=== PATIENT | female | born 1995 ===

== ENCOUNTER 2017-11-22 19:19 | Observation (INO) | payer OTHER ==
[2017-11-22 20:09] VITALS: BMI 22.4
[2017-11-22] MEDS ORDERED: Lactated Ringer's 1,000 ML IV SCH (20:15)
[2017-11-22 20:52] LABS: SQUAMOUS EPITHIAL 8 /hpf (0-5); URINE BILIRUBIN NEGATIVE (NEGATIVE); URINE BLOOD NEGATIVE (NEGATIVE); URINE CLARITY SLIGHTY-CLOUDY (Clear); URINE COLOR YELLOW (YELLOW); URINE GLUCOSE (UA) NEG (Normal); URINE LEUKOCYTE ESTERASE NEG Leu/uL (Negative); URINE NITRATE NEGATIVE (NEGATIVE); URINE PROTEIN NEGATIVE (NEGATIVE); URINE UROBILINOGEN 0.2-1.0 mg/dL (0.2-1.0)
[2017-11-22] MEDS: Lactated Ringer's 1,000 ML IV SCH (21:30)
--- NOTE | 2017-11-22 21:43 | US ---
EXAM: US Uterus, Limited CLINICAL HISTORY: 22 years old, female; Pain; complicated by abdominal or pelvic pain; Other: Contractions; Gestational age or lmp: 26 wks; ; Additional info: Ctxns at 26 weeks TECHNIQUE: Real-time ultrasound of the maternal uterus (limited) with image documentation. COMPARISON: No relevant prior studies available. FINDINGS: Cervix: Closed cervix. Cervical length = 5.1 cm. IMPRESSION: 1.No acute findings.
--- NOTE | 2017-11-22 23:30 | OBHP ---
Datetime: 11/22/2017 20:52 IP Adm Impression: , intrauterine IP Chief Complaint Other: Back pain IP Admit Plan: Observation/Evaluation Admit Comment, IP Provider: 22 yo at 26+2 wks w/ EDC 02/26/2018 by 8+ wk u/s who p.w a lot of contractions, back pain that started around 2pm today, denies dysuria, VB, LOF and reports FM. Pt denies recent sex. Pt receives her PNC w/ Dr. Bernal. Pt speaks Irish. Dr. Candis Nielsen, PGY -1 translated. PMH: Healthy PSH: c/s x 1 in 11/2015 Meds: PNVs All: NKDA Soc hx: pt denies tobacco, alcohol, and illicit drug use Fam hx: N/c Leader Tier hx: 15 x regular cycles, denies STDs, abn paps OB hx: 11/2015 prinmary c/s, female, 6#7, breech PE: AFVSS Gen'l: pt appears comfortable lying in stretcher Heart: RRR Chest: lungs CTA b/l Abd: soft, NT, gravid Ext: NT, no edema Spec: nl appeariung cx w/ slight yellow d/c, FFN done VE: closed/long A/P: 22 yo at 26+2 wks w/ ctxns and back pain UA neg w/ 8 sq epi's, urine cx pending Cervical length 5.1 cm, closed and long Discussed case w/ Dr. Bernal Pt to be admitted to observation until morning Pt made NPO. Will continue IVF Extremities - PN: Normal Abdomen - PN: Normal Back - PN: Normal Lungs - PN: Normal Heart - PN: Normal Neurologic - PN: Normal General - PN: Normal FHR - Baseline A Provider: 140's Membranes, Provider: Intact Contraction Comments Provider: Q3-4 EGA AdmitDate IP: 26.2 Vital Signs Provider: Reviewed; Within Normal Limits IP Chief Complaint: Uterine contractions; Other NICHD Variability Prov Fetus A: Moderate 6-25bpm Dilatation, Provider: 0 Effacement, Provider: 0 Station, Provider: -3 Genitourinary Exam: Normal
[2017-11-23] MEDS: Lactated Ringer's 1,000 ML IV SCH (03:30)
--- NOTE | 2017-11-23 09:28 | OBPN ---
Datetime: 11/23/2017 09:22 IP Progress Impression Other: feels better no more pains IP Progress Impression: labor IP Progress Plan: Discharge Pool Provider: Negative Membranes, Provider: Intact Contraction Comments Provider: none FHR - Baseline A Provider: 140-150 Gestation - Est Wks by US: 26 wks IP Progress Note Comment: d/c home in stable and improved conditions and instructions given to bed a nd pelvic rest and increase hydration folllow up office 1 wk Call immediatly if increase pains etc NICHD Variability Prov Fetus A: Minimal - Undetectable to <5bpm Dilatation, Provider: closed Effacement, Provider: none Station, Provider: high NICHD Decel Fetus A IP Provider: None Datetime: 11/22/2017 20:52 Vital Signs Provider: Reviewed; Within Normal Limits
[2017-11-23 14:43] VITALS: BP 105/57; PULSE 77; RESP 20; TEMP 98; O2SAT 100
== END 2017-11-23 09:30 | disposition home or self-care (01) ==
LOC: H.EROB2 19:19 → H.EROB 23:51
PROVIDERS: ADMIT Specialist; ATTEND Specialist
DX: O47.02 False labor before 37 completed weeks of gestation, second trimester (principal)
CPT/HCPCS: 76817; 81003; 87086; 96360; 96361; 99283; G0378; J7120

== ENCOUNTER 2018-02-18 07:33 | Inpatient (IN) | payer OTHER ==
[2018-02-18] MEDS: Lactated Ringer's 1,000 ML IV SCH ×3 (07:40→16:57)
[2018-02-18 08:05] VITALS: BMI 27.4
[2018-02-18] MEDS ORDERED: cefOXitin Sodium 1 GM in Sodium Chloride 0.9% 100 ML IVPB ONE (08:05)
[2018-02-18] MEDS ORDERED: Phenylephrine 10 mg/ml Inj ONE (08:09)
[2018-02-18] MEDS ORDERED: ePHEDrine 50 mg/ml Inj ONE (08:10)
[2018-02-18] MEDS ORDERED: Morphine 1 mg/ml preservative-free Inj(Duramorph) ONE (08:12)
[2018-02-18] MEDS ORDERED: Oxytocin 30 units/LR 500ML 30 UNITS/500 ML BAG IV ONE (08:33)
[2018-02-18 08:46] LABS: BASO % 0.3 % (0.0-2.0); EOS % 0.4 % (0.0-4.0); HEMOGLOBIN 11.7 g/dL (12.0-16.0); LYMPH # 2.3 K/uL (1.0-4.3); LYMPH % 26.2 % (20.0-40.0); MEAN CELL VOLUME 86.8 fl (81.0-99.0); MEAN CORPUSCULAR HEMOGLOBIN 29.2 pg (27.0-31.0); MEAN CORPUSCULAR HGB CONC 33.6 g/dL (33.0-37.0); MEAN PLATELET VOLUME 9.6 fl (7.2-11.7); MONO # 0.6 K/uL (0.0-0.8); NEUT # 5.9 K/uL (1.8-7.0); NEUT % 66.1 % (50.0-75.0); RBC 4.01 Mil/uL (3.80-5.20); RED CELL DISTRIBUTION WIDTH 13.4 % (11.5-14.5); WHITE BLOOD COUNT 8.9 K/uL (4.8-10.8)
[2018-02-18] MEDS ORDERED: Sterile Water 10 ML IV ONE (09:36)
[2018-02-18] MEDS ORDERED: Triamcinolone Acetonide 40 mg/mL Inj IM ONE (10:01)
[2018-02-18] MEDS ORDERED: Oxycodone/Acetaminophen 5/325 mg Tab PO PRN (11:10)
[2018-02-18] MEDS ORDERED: DiphenhydrAMINE 50 mg/ml Inj IVP PRN (11:10)
[2018-02-18] MEDS ORDERED: Oxytocin 30 units/LR 500ML 30 UNITS/500 ML BAG IV SCH (12:15)
[2018-02-18] MEDS: cefOXitin IV 1 gm in Dextrose 1 GM/50 ML BAG IVPB SCH (16:55)
[2018-02-19] MEDS: cefOXitin IV 1 gm in Dextrose 1 GM/50 ML BAG IVPB SCH ×2 (00:45→10:05)
[2018-02-19] MEDS: Lactated Ringer's 1,000 ML IV SCH (02:54)
[2018-02-19 08:18] LABS: HEMOGLOBIN 10.1 g/dL (12.0-16.0); MEAN CELL VOLUME 87.5 fl (81.0-99.0); MEAN CORPUSCULAR HEMOGLOBIN 29.5 pg (27.0-31.0); MEAN CORPUSCULAR HGB CONC 33.8 g/dL (33.0-37.0); RBC 3.41 Mil/uL (3.80-5.20); RED CELL DISTRIBUTION WIDTH 13.5 % (11.5-14.5); WHITE BLOOD COUNT 10.8 K/uL (4.8-10.8)
[2018-02-19] MEDS: Prenatal Multivit/Folic Acid/Iron Tab PO SCH (08:52)
--- NOTE | 2018-02-19 13:23 | OP ---
PROCEDURE DATE: 02/18/2018 PREOPERATIVE DIAGNOSES: 1. at term. 2. Previous section. 3. Multiparity and voluntary sterilization. POSTOPERATIVE DIAGNOSES: 1. at term. 2. Previous section. 3. Multiparity and voluntary sterilization. PROCEDURES PERFORMED: 1. Repeat low-transverse segment section. 2. Bilateral tubal sterilization using a modified Rhame procedure. SURGEON: Dewayne Bernal MD MUTUEL DEPARTMENT MANAGER: Huey Booker MD and Sarbjit Jennifer ANESTHESIA USED:: Spinal. ANESTHESIA ADMINISTERED BY: Lynette Pandya MD ESTIMATED BLOOD LOSS: 850 mL. DRAINS USED: None. REPLACEMENT USED: None. FINDINGS: 1. Delivered a living baby girl, baby appears term, and baby cried spontaneously. Pediatrist in attendance. score of 8 and 9. 2. Amniotic fluid clear. 3. Placenta complete and intact. 4. Both tubes and ovaries appeared grossly within normal limits to inspection bilaterally. 5. Bilateral tubal sterilization performed using a modified Rhame procedure without any complications. DESCRIPTION OF PROCEDURE: The patient was taken to the operating room and placed on the operating room table in a supine position following induction of spinal anesthesia. The patient was then replaced in a supine position. Madrid catheter was then inserted into the bladder and it was draining clear fluid. At this time, Venodyne boots were applied to both legs and the abdomen was then draped and prepped in the usual sterile manner. Following this, we then proceeded to test anesthesia and found to be well secured. A Pfannenstiel incision was then made using sharp dissection along the edges of the previous incision and a small keloid scar was then removed. The incision was then extended down to the subcutaneous tissue using sharp dissection. Hemostasis was obtained by means of electrocoagulation. Fascia was then identified and was then entered at the midline incision. The fascia was then extended laterally on each direction using sharp dissection in a semi curvilinear fashion. Rectus muscle was then identified, it was then slit in the midline, exposing the peritoneum, the peritoneal layer was then entered using sharp dissection. An incision on the peritoneum was then extended superiorly and inferiorly under direct visualization. The bladder was then identified, it was then retracted inferiorly using the Mayra retractor. The low transverse segment of the uterus was then identified and the visceroperitoneum covering this area was then entered. Using blunt dissection, a bladder flap was then created and retracted inferiorly using the same Mayra retractor. An incision was then made on the low transverse segment of the uterus and upon entering the uterine cavity, clear fluid noted to be present. The incision was then extended laterally on each direction using bandage scissors. Using amnioscopy procedure, living baby girl was then delivered. The baby appeared term, the baby appeared slightly large, but cried spontaneously. The umbilicus was then doubly clamped, cut and the baby handed to the pediatric personnel who was standing by. Samples of cord blood were then obtained. The placenta was then delivered complete and intact. At this time, the uterus was then exteriorized to provide better visualization. The uterine cavity was then thoroughly cleaned using moist lap pads. The uterus was massaged and slightly boggy, so Methergine was given and then the uterus again massaged and contracted well. At this time, we then proceeded to secure the uterine incision using multiple T-clamps and the incision was then approximated using 0 Vicryl suture in a continuous interlocking manner. Hemostasis was checked and found to be well secured. A second layer was also applied in the uterine incision using 0 Vicryl suture the number type suturing. Again, hemostasis was obtained and found to be well secured. Following this, both tubes and ovaries were then observed to be grossly within normal limits to inspection. The patient again was questioned about her desire for tubal sterilization and she again expressed desire for this. The right fallopian tube was then followed to its fimbriated end and it was grasped at the ampullary region using a [place] clamp and retracted superiorly. Following this, we then proceeded to using 2-0 chromic passed through the mesosalpinx and the ampullary region of the tube was then ligated. A 2-0 chromic free tie was then placed underneath the ligature and the ligated section of the tube was then resected and the specimen is sent to pathology for proper pathological evaluation. Following this, we then proceeded to perform the same procedure on the contralateral side without any complications. All operative areas checked, hemostatically secured and free amniotic fluid and blood evacuated from the pelvic cavity. The pelvic cavity was then thoroughly irrigated using saline solution and the uterus allowed to retract back into its original position. Following this, we then proceeded to check all operative areas hemostatically secured, especially tubal areas and the peritoneum was then approximated using 0 Vicryl suture in a continuous manner. Rectus muscle was also approximated at the midline using 0 Vicryl suture in a continuous manner. At this time, the fascia was then identified, was then approximated using 1 Vicryl suture in a continuous manner. Fascia was then checked and found to be free of defect. Subcutaneous tissue was then irrigated using saline solution and approximated using several interrupted 2-0 plain sutures. The skin was then approximated using a 3-0 Prolene in a subcuticular fashion. Steri-Strips were then applied and Kenalog 40 mg in 20 mL of saline was then injected subcuticularly along the edges of the incision in order to provide for keloid formation not to occur. At this time, the Madrid catheter was then checked, it was draining clear fluid. The patient tolerated the procedure well. There were no complications. Sponge, needle, and instrument counts were correct x3. Dewayne Bernal MD MTDD
[2018-02-19] MEDS: Oxycodone/Acetaminophen 5/325 mg Tab PO PRN (15:26)
[2018-02-20] MEDS: Oxycodone/Acetaminophen 5/325 mg Tab PO PRN ×2 (03:29→08:18)
[2018-02-20] MEDS: Prenatal Multivit/Folic Acid/Iron Tab PO SCH (08:19)
--- NOTE | 2018-02-20 12:12 | OBPPN ---
Datetime: 02/20/2018 12:08 PP Pain Prov: Within normal limits PP Pain Prov comment: no SOB, chest or leg pains PP Nausea Prov: Denies PP Flatus Prov: Yes PP BM Prov: Yes PP Breasts Prov: Normal PP Lungs Prov: Normal PP Abdomen/Uterus Prov: Abnormal PP Lochia Prov: Normal PP Vulva/Perineum Prov: Normal PP CVA Tenderness Prov: Normal PP Extremities Prov: Normal PP C/S Incision Prov: Normal PP Progress Prov: Normal PP Comments Phys Exam Prov: breast not engorged NT Abd soft not distended fundus firm below the umb Incision clean and dry no suppt or discharge sutures in place Ext no calf tenderness PP Impression Prov: Normal progression PP Plan Prov: Continue present management PP Progress Note Prov: OOB and ambulation continue po care Increase po fluids IP PP Procedures: None Vital Signs Provider PP: Reviewed
--- NOTE | 2018-02-21 07:25 | OBPPN ---
Datetime: 02/21/2018 07:21 PP Pain Prov: Within normal limits PP Pain Prov comment: No SOB, chest or leg pains PP Nausea Prov: Denies PP Flatus Prov: Yes PP BM Prov: Yes PP Nausea Prov comment: voiding well PP Breasts Prov: Normal PP Lungs Prov: Normal PP Abdomen/Uterus Prov: Abnormal PP Lochia Prov: Normal PP Vulva/Perineum Prov: Normal PP CVA Tenderness Prov: Normal PP Extremities Prov: Normal PP C/S Incision Prov: Normal PP Progress Prov: Normal PP Comments Phys Exam Prov: breast not engorged, Abd soft ND fundus firm below the umb incision alee n and dry no suppt or diescharge no sign of infection Ext no calf tenderness PP Impression Prov: Normal progression PP Plan Prov: Discharge PP Progress Note Prov: D/c home with instructions IP PP Procedures: None Vital Signs Provider PP: Within Normal Limits
--- NOTE | 2018-02-21 07:27 | OBDCSUM ---
Datetime: 02/21/2018 07:24 Discharged to, Provider: Home Follow up at, Provider: Dr Bernal Disch Instr Activity: Bedrest; May be up to bathroom; May be up for meals; May Shower Disch Instr Diet: Regular Discharge Instructions, Provider: Routine instructions given Discharge Diagnosis, Provider: Term Delivered Discharge Time: 02/21/2018 07:24 Follow up in weeks, Provider: 1 wk Disch Referrals: None Contraception discussed, Prov: Yes Disch Activity Restrictions: No exercising; No lifting; No driving; Minimize walking; Minimize stair -climbing; No sexual activity; Nothing in vagina - Venus, tampons, douche Discharge Comment, Provider: Continue bed and pelvic rest Rx for Percocet given Contraception after Delivery: Tubal Ligation
[2018-02-21] MEDS: Prenatal Multivit/Folic Acid/Iron Tab PO SCH (08:32)
[2018-02-21 18:15] VITALS: BP 121/65; PULSE 76; RESP 20; TEMP 98; O2SAT 100
== END 2018-02-21 13:55 | disposition home or self-care (01) | DRG 371 ==
LOC: H.L&D 08:06 → H.OB/GYN 15:09
PROVIDERS: ADMIT Specialist; ATTEND Specialist
PROC: 10D00Z1 Extraction of Products of Conception, Low, Open Approach (ICD-10-PCS; principal; 2018-02-18)
PROC: 0UB70ZZ Excision of Bilateral Fallopian Tubes, Open Approach (ICD-10-PCS; 2018-02-18)
PROC: 4A1HXCZ Monitoring of Products of Conception, Cardiac Rate, External Approach (ICD-10-PCS; 2018-02-18)
DX: O34.219 Maternal care for unspecified type scar from previous cesarean delivery (principal); N85.8 Other specified noninflammatory disorders of uterus; Z37.0 Single live birth; Z3A.38 38 weeks gestation of pregnancy; Z30.2 Encounter for sterilization

== ENCOUNTER 2018-04-30 13:36 | Emergency (ER) | payer OTHER ==
[2018-04-30 13:36] VITALS: BMI 27.4
[2018-04-30 13:46] VITALS: BP 115/68; PULSE 64; RESP 18; TEMP 98; O2SAT 100
--- NOTE | 2018-04-30 14:22 | ED PDOC ---
HPI: Female Pain Time Seen by Provider: 04/30/18 13:51 Chief Complaint (Nursing): Female Genitourinary Chief Complaint (Provider): Pelvic pain History Per: Patient Additional Complaint(s): 22 yo female, no PMH, presents to ED with C/O pelvic pain/burning with urination/blood in urine x 2 days. Patient had a baby 2 months ago - C- section. No fever, chills, back pain, nausea or vomiting. No vaginal discharge, or b leeding. Pt is not breast feeding Past Medical History Reviewed: Nursing Documentation, Vital Signs Vital Signs: Last Vital Signs Temp 98 F 04/30/18 13:42 Pulse 64 04/30/18 13:42 Resp 18 04/30/18 13:42 BP 115/68 04/30/18 13:42 Pulse Ox 100 04/30/18 13:42 - Medical History PMH: No Chronic Diseases Denies: Depression, Diabetes, HTN - Surgical History Surgical History: - Family History Family History: States: No Known Family Hx - Living Arrangements Living Arrangements: With Family - Social History Current smoker - smoking cessation education provided: No Alcohol: None Drugs: Denies - Home Medications Home Medications: Ambulatory Orders Medication Instructions Recorded Vit#96/Ferrous Fum/FA 1 tab PO DAILY 09/06/15 [] Nitrofurantoin Macrocrystals 100 mg PO BID #14 cap 07/20/17 [Macrobid] oxyCODONE/Acetaminophen [Percocet 1 ea PO Q4 PRN #30 tab 02/21/18 5/325 mg Tab] - Allergies Allergies/Adverse Reactions: Allergies Allergy/AdvReac Type Severity Reaction Status Date / Time No Known Allergies Allergy Verified 04/30/18 13:42 Review of Systems ROS Statement: Except As Marked, All Systems Reviewed And Found Negative Gastrointestinal: Positive for: Abdominal Pain Genitourinary Female: Positive for: Dysuria, Hematuria Physical Exam - Reviewed Nursing Documentation Reviewed: Yes Vital Signs Reviewed: Yes - Physical Exam Appears: Positive for: Well, Non-toxic, No Acute Distress Head Exam: Positive for: ATRAUMATIC, NORMAL INSPECTION, NORMOCEPHALIC Skin: Positive for: Normal Color, Warm, DRY Eye Exam: Positive for: EOMI, Normal appearance, PERRL ENT: Positive for: Normal ENT Inspection Neck: Positive for: Normal, Painless ROM Cardiovascular/Chest: Positive for: Regular Rate, Rhythm Respiratory: Positive for: CNT, Normal Breath Sounds Gastrointestinal/Abdominal: Positive for: Normal Exam, Soft. Negative for: Tenderness Back: Positive for: Normal Inspection Extremity: Positive for: Normal ROM Neurologic/Psych: Positive for: Alert, Oriented - Laboratory Results Result Diagrams: 04/30/18 14:50 04/30/18 14:50 - ECG O2 Sat by Pulse Oximetry: 100 Medical Decision Making Medical Decision Making: IV access established and treatment initiated with IV Toradol and Rocpehin after U.Dip resulted (+) blood, nites and leuks WBC 6.0 Pt made aware of results and demonstrated full understanding. remainder of diagnostics discussed with Pt Pt doing well on re-eval. abdomen soft, non tender or non distended Disposition - Clinical Impression Clinical Impression: Urinary tract infection - Patient ED Disposition Is Patient to be Admitted: No - Disposition Disposition: Routine/Home Disposition Time: 17:09 Condition: STABLE Forms: [employer] (Upper Sorbian)
[2018-04-30 15:09] LABS: BASO % 0.6 % (0.0-2.0); EOS # 0.1 K/uL (0.0-0.7); EOS % 0.9 % (0.0-4.0); HEMOGLOBIN 13.3 g/dL (12.0-16.0); LYMPH # 2.2 K/uL (1.0-4.3); LYMPH % 36.2 % (20.0-40.0); MEAN CELL VOLUME 82.4 fl (81.0-99.0); MEAN CORPUSCULAR HEMOGLOBIN 27.8 pg (27.0-31.0); MEAN CORPUSCULAR HGB CONC 33.8 g/dL (33.0-37.0); MEAN PLATELET VOLUME 9.3 fl (7.2-11.7); MONO # 0.3 K/uL (0.0-0.8); MONO % 5.6 % (0.0-10.0); NEUT # 3.4 K/uL (1.8-7.0); NEUT % 56.7 % (50.0-75.0); NRBC % 0.1 % (0.0-0.0); RBC 4.78 Mil/uL (3.80-5.20); RED CELL DISTRIBUTION WIDTH 13.5 % (11.5-14.5)
[2018-04-30 15:16] LABS: RENAL EPITHELIAL 1 /hpf (0-3); SQUAMOUS EPITHIAL 5 /hpf (0-5); URINE BACTERIA MOD (<OCC); URINE BILIRUBIN NEGATIVE (NEGATIVE); URINE BLOOD MODERATE (NEGATIVE); URINE CLARITY CLOUDY (Clear); URINE COLOR YELLOW (YELLOW); URINE GLUCOSE (UA) NEG (Normal); URINE LEUKOCYTE ESTERASE LARGE Leu/uL (Negative); URINE PROTEIN NEGATIVE (NEGATIVE); URINE UROBILINOGEN 0.2-1.0 mg/dL (0.2-1.0)
[2018-04-30 15:19] LABS: ALB/GLOB RATIO 1.5 (1.0-2.1)
[2018-04-30 15:32] LABS: ALBUMIN 4.5 g/dL (3.5-5.0); ALT/SGPT 32 U/L (9-52); AST/SGOT 25 U/L (14-36); BLOOD UREA NITROGEN 8 mg/dl (7-17); GFR AFRICAN-AMERICAN > 60; GFR NON-AFRICAN AMERICAN > 60
[2018-04-30] MEDS ORDERED: cefTRIAXone (Rocephin) 1 gm Inj ONE (16:39)
--- NOTE | 2018-04-30 16:43 | US ---
Date of service: 04/30/2018 HISTORY: pain and heavy bleeding s/p 2 m ago COMPARISON: None available. TECHNIQUE: Transvaginal FINDINGS: UTERUS: Measures 8.1 x 4.4 x 6.8 cm. No uterine mass. There is an irregular hypoechoic region anterior to the lower uterine segment endometrial echo complex, likely related to recent Caesarean section approximately 2 months prior to this examination. No fluid collection. No vascularity demonstrated within this hypoechoic region. ENDOMETRIUM: Measures aids mm in diameter. No endometrial fluid. CERVIX: Trace endocervical fluid. No mass identified. RIGHT OVARY: Measures 2.9 x 1.8 x 2.5 cm. No solid mass. Normal flow. LEFT OVARY: Measures 3.5 x 2.1 x 3.2 cm. No solid mass. Normal flow. FREE FLUID: No significant free fluid noted. OTHER FINDINGS: None. IMPRESSION: Nonvascular hypoechoic region anterior to lower uterine segment endometrial echo complex likely related to recent Caesarian section. Incidentally noted trace endocervical fluid. No additional abnormality.
== END 2018-04-30 17:47 | disposition home or self-care (01) ==
LOC: H.ER 13:36
DX: N39.0 Urinary tract infection, site not specified (principal)
CPT/HCPCS: 76830; 80053; 81003; 81025; 85025; 87086; 87181; 96374; 99283; J0696

== ENCOUNTER 2018-07-12 09:19 | Emergency (ER) | payer SELFPAY ==
[2018-07-12 09:23] VITALS: BMI 20.7
[2018-07-12 09:24] VITALS: TEMP 98.6; O2SAT 100
[2018-07-12] MEDS ORDERED: Sodium Chloride 0.9% 1,000 ML IV STA (09:36)
--- NOTE | 2018-07-12 09:41 | ED PDOC ---
HPI: Abdomen Time Seen by Provider: 07/12/18 09:28 Chief Complaint (Provider): abdominal pain History Per: Patient History/Exam Limitations: no limitations Current Symptoms Are (Timing): Still Present Additional Complaint(s): 22 year old female presents to ED with a complaint of lower, left abdominal pain associated with nausea and vaginal bleeding. She denies any vomiting, diarrhea, or urinary complaints. LMP: 05/2018. PMD: none provided Past Medical History Reviewed: Historical Data, Nursing Documentation, Vital Signs Vital Signs: Last Vital Signs Temp 98.6 F 07/12/18 09:23 Pulse 62 07/12/18 09:23 Resp 17 07/12/18 09:23 BP 114/70 07/12/18 09:23 Pulse Ox 100 07/12/18 09:23 - Medical History PMH: No Chronic Diseases Denies: Depression, Diabetes, HTN - Surgical History Surgical History: - Family History Family History: States: Unknown Family Hx - Home Medications Home Medications: Ambulatory Orders Medication Instructions Recorded Vits96/Iron Fum/Folic 1 tab PO DAILY 09/06/15 [] Nitrofurantoin Macrocrystals 100 mg PO BID #14 cap 07/20/17 [Macrobid] oxyCODONE/Acetaminophen [Percocet 1 ea PO Q4 PRN #30 tab 02/21/18 5/325 mg Tab] Cephalexin [cephalexin] 500 mg PO BID #14 cap 04/30/18 Naproxen [Naprosyn] 500 mg PO Q12H #20 tab 07/12/18 - Allergies Allergies/Adverse Reactions: Allergies Allergy/AdvReac Type Severity Reaction Status Date / Time No Known Allergies Allergy Verified 04/30/18 13:42 Review of Systems ROS Statement: Except As Marked, All Systems Reviewed And Found Negative Gastrointestinal: Positive for: Nausea, Abdominal Pain (lower left). Negative for: Vomiting, Diarrhea Genitourinary Female: Positive for: Vaginal Bleeding. Negative for: Dysuria, Hematuria Physical Exam - Reviewed Nursing Documentation Reviewed: Yes Vital Signs Reviewed: Yes - Physical Exam Appears: Positive for: Well, Non-toxic, No Acute Distress Head Exam: Positive for: ATRAUMATIC, NORMAL INSPECTION, NORMOCEPHALIC Skin: Positive for: Normal Color Eye Exam: Positive for: Normal appearance ENT: Positive for: Normal ENT Inspection Neck: Positive for: Normal, Supple Cardiovascular/Chest: Positive for: Regular Rate, Rhythm Respiratory: Positive for: Normal Breath Sounds. Negative for: Respiratory Distress Gastrointestinal/Abdominal: Positive for: Soft, Tenderness (LLQ). Negative for: Mass Back: Positive for: Normal Inspection. Negative for: L CVA Tenderness, R CVA Tenderness Extremity: Positive for: Normal ROM (upper/lower) Neurologic/Psych: Positive for: Alert (x3), Oriented. Negative for: Mo tor/Sensory Deficits - Laboratory Results Result Diagrams: 07/12/18 10:00 - ECG O2 Sat by Pulse Oximetry: 100 (RA) Pulse Ox Interpretation: Normal - Progress Re-evaluation Time: 12:55 Condition: Improved Medical Decision Making Medical Decision Making: Time: 934 Initial Plan: * Labs * IV fluids * Toradol 30mg IM * US transvaginal ----- Scribe Attestation: Documented by Olinda Amanda, acting as a scribe for Huey Galvez MD. Provider Scribe Attestation: All medical record entries made by the Scribe were at my direction and personally dictated by me. I have reviewed the chart and agree that the record accurately reflects my personal performance of the history, physical exam, medical decision making, and the department course for this patient. I have also personally directed, reviewed, and agree with the discharge instructions and disposition. Disposition - Clinical Impression Clinical Impression: Dysmenorrhea - Patient ED Disposition Is Patient to be Admitted: No Counseled Patient/Family Regarding: Studies Performed, Diagnosis, Need For Followup, Rx Given - Disposition Referrals: Dewayne Bernal MD [Family Provider] - Disposition: Routine/Home Disposition Time: 12:55 Condition: FAIR Prescriptions: Naproxen [Naprosyn] 500 mg PO Q12H #20 tab Instructions: Menstrual Cramps Print Language: SLOVENIAN
[2018-07-12 10:09] LABS: BASO % 0.3 % (0.0-2.0); EOS % 0.1 % (0.0-4.0); HEMOGLOBIN 12.6 g/dL (12.0-16.0); LYMPH # 1.3 K/uL (1.0-4.3); LYMPH % 10.7 % (20.0-40.0); MEAN CELL VOLUME 83.5 fl (81.0-99.0); MEAN CORPUSCULAR HEMOGLOBIN 27.7 pg (27.0-31.0); MEAN CORPUSCULAR HGB CONC 33.2 g/dL (33.0-37.0); MEAN PLATELET VOLUME 9.5 fl (7.2-11.7); MONO # 0.6 K/uL (0.0-0.8); MONO % 4.7 % (0.0-10.0); NEUT # 10.5 K/uL (1.8-7.0); NEUT % 84.2 % (50.0-75.0); RBC 4.55 Mil/uL (3.80-5.20); RED CELL DISTRIBUTION WIDTH 13.5 % (11.5-14.5); WHITE BLOOD COUNT 12.4 K/uL (4.8-10.8)
--- NOTE | 2018-07-12 12:40 | US ---
Date of service: 07/12/2018 HISTORY: LLQ pain COMPARISON: None available. TECHNIQUE: Transvaginal FINDINGS: UTERUS: Measures 9.0 x 3.7 x 6.0 cm. Incidentally noted septate/sub septate morphology. No mass. ENDOMETRIUM: Measures 9-11 mm in diameter. Unremarkable. CERVIX: No cervical abnormality identified. RIGHT OVARY: Measures 3.7 x 1.8 x 3.7 cm. No solid mass. Normal flow. LEFT OVARY: Measures 2.8 x 1.8 x 2.6 cm. No solid mass. Normal flow. FREE FLUID: Trace fluid in cul-de-sac OTHER FINDINGS: None. IMPRESSION: Incidentally noted septate/sub septate uterine morphology. Otherwise unremarkable.
[2018-07-12 15:31] VITALS: BP 110/70; PULSE 70; RESP 16
== END 2018-07-12 14:00 | disposition home or self-care (01) ==
LOC: H.ER 09:19
DX: N94.6 Dysmenorrhea, unspecified (principal)
CPT/HCPCS: 76830; 81025; 85025; 96374; 99283; J1885; J7030